=== PATIENT | female | born 1960 | race Caucasian/White ===

== ENCOUNTER → 2017-05-02 | Outpatient (CLI) | payer BC | LOC: ULTRA 10:04 | DX: S93.145A Subluxation of metatarsophalangeal joint of left lesser toe(s), initial encounter (principal); M71.572 Other bursitis, not elsewhere classified, left ankle and foot; S93.525A Sprain of metatarsophalangeal joint of left lesser toe(s), initial encounter; X58.XXXA Exposure to other specified factors, initial encounter; Y93.89 Activity, other specified; Y92.89 Other specified places as the place of occurrence of the external cause; Y99.8 Other external cause status ==